=== PATIENT | female | born 2000 | race Caucasian/White ===

== ENCOUNTER 2021-03-02 13:14 | Emergency (ER) | payer OTHER ==
[~2021-03-02] VITALS: Ht 160 cm; Wt 54.4 kg
[2021-03-02] MEDS ORDERED: PROVENTIL HFA6.7 GM INH ×2 (16:58)
[2021-03-02] MEDS ORDERED: PREDNISONE20 M1 PO (16:58)
[2021-03-02] MEDS ORDERED: IBUPROFEN600 MG PO (16:58)
== END 2021-03-02 17:06 | disposition home or self-care (01) ==
LOC: ED 13:14
DX: U07.1 COVID-19 (principal)